=== PATIENT | male | born 2000 | race Two or more races ===

== ENCOUNTER 2020-04-26 11:28 | Inpatient (IN) | payer MEDICAID ==
[~2020-04-26] VITALS: Ht 172.7 cm; Wt 70.9 kg
[2020-04-26 13:27] VITALS: BP 135/81
[2020-04-26] MEDS ORDERED: HALOPERIDOL 5 MG TABLET PO PRN (15:30)
[2020-04-26 16:36] VITALS: BP 138/76
[2020-04-26] MEDS: LORazepam 2 MG TABLET PO PRN (16:50)
[2020-04-26] MEDS: ZOLPIDEM TARTRATE 10 MG TABLET PO PRN (23:36)
[2020-04-27] VITALS: BP 138/68
[2020-04-27] MEDS: LORazepam 2 MG TABLET PO PRN ×3 (03:32→17:32)
[2020-04-27 08:22] VITALS: BP 120/68
[2020-04-27 08:24] LABS: BASOPHILS % (AUTO) 0.1 % (0.0-2.0); EOSINOPHILS % (AUTO) 1.3 % (1.0-6.0); HEMATOCRIT 43.9 % (41-53); HEMOGLOBIN 14.9 g/dL (13.5-17.5); LYMPHOCYTES # (AUTO) 1.7 K/uL (1.0-4.8); LYMPHOCYTES % (AUTO) 23.4 % (22.0-44.0); MEAN CORPUSCULAR HEMOGLOBIN 31.1 pg (26.0-34.0); MEAN CORPUSCULAR HGB CONC 33.9 G/dL (31.0-37.0); MEAN CORPUSCULAR VOLUME 92 fL (80-100); MONOCYTES # (AUTO) 0.6 K/uL (0.1-1.0); MONOCYTES % (AUTO) 8.4 % (2.0-9.0); NEUTROPHILS # (AUTO) 4.8 K/uL (1.8-7.7); NEUTROPHILS % (AUTO) 66.8 % (40.0-70.0); PLATELET COUNT (AUTO) 269 K/uL (150-450); RED BLOOD CELL COUNT(AUTO) 4.79 MIL/uL (4.50-5.90); RED CELL DISTRIBUTION WIDTH 13.9 % (11.5-14.5)
[2020-04-27 08:50] LABS: ALBUMIN 4.2 g/dL (3.4-5.0); ALKALINE PHOSPHATASE 77 U/L (46-116); ANION GAP 7 mmol/L (8-16); ASPARTATE AMINOTRANSFERASE 25 U/L (15-37); BILIRUBIN,TOTAL 0.7 mg/dL (0.1-1.0); CALCIUM, TOTAL 9.1 mg/dL (8.8-10.5); CARBON DIOXIDE 28 mmol/L (22-29); CHLORIDE 105 mmol/L (98-107); CREATININE 0.92 mg/dL (0.60-1.30); GLOMERULAR FILTR. RATE CALC > 60 mL/min (>60); GLUCOSE,RANDOM 105 mg/dL (70-110); POTASSIUM 4.2 mmol/L (3.5-5.1); SODIUM SERUM 140 mmol/L (136-145); TOTAL PROTEIN, SERUM 7.5 g/dL (6.4-8.2); UREA NITROGEN, BLOOD 14 mg/dL (7-18)
[2020-04-27 09:24] LABS: ALANINE AMINOTRANSFERASE 38 U/L (12-78); FREE T4 (FREE THYROXINE) 1.02 ng/dL (0.76-1.46); THYROID STIMULATING HORMONE 0.23 uIU/mL (0.36-3.74)
[2020-04-27] MEDS: FLUoxetine HCL 10 MG CAPSULE PO SCH (13:11)
[2020-04-27 17:58] VITALS: BP 128/78
[2020-04-27] MEDS: ZOLPIDEM TARTRATE 10 MG TABLET PO PRN (21:16)
[2020-04-28 00:20] VITALS: BP 132/81
[2020-04-28 02:56] VITALS: BP 139/73
[2020-04-28] MEDS: LORazepam 2 MG TABLET PO PRN ×3 (02:59→16:54)
[2020-04-28 08:34] VITALS: BP 122/54
[2020-04-28] MEDS: FLUoxetine HCL 10 MG CAPSULE PO SCH (09:41)
[2020-04-28 17:00] VITALS: BP_SYST 125; BP_DIAS 78; BP_DIAS 81
[2020-04-28] MEDS: ZOLPIDEM TARTRATE 10 MG TABLET PO PRN (21:41)
[2020-04-29 02:20] VITALS: BP 117/83
[2020-04-29] MEDS: LORazepam 2 MG TABLET PO PRN (02:21)
[2020-04-29] MEDS: FLUoxetine HCL 10 MG CAPSULE PO SCH (08:11)
[2020-04-29 08:27] VITALS: BP 127/73
[2020-04-29] MEDS ORDERED: PROZ10 PO (12:24)
== END 2020-04-29 14:04 | disposition home or self-care (01) | DRG 885 ==
LOC: B2S 12:30
PROVIDERS: ADMIT Psychiatry & Neurology Psychiatry; ATTEND Psychiatry & Neurology Child & Adolescent Psychiatry
DX: F33.2 Major depressive disorder, recurrent severe without psychotic features (principal); J45.909 Unspecified asthma, uncomplicated; F17.200 Nicotine dependence, unspecified, uncomplicated; F41.9 Anxiety disorder, unspecified; F11.10 Opioid abuse, uncomplicated; F12.90 Cannabis use, unspecified, uncomplicated; Z79.899 Other long term (current) drug therapy
CPT/HCPCS: 84439; 84443; 87081